=== PATIENT | male | born 1960 | race American Indian/Alaskan Native ===

== ENCOUNTER 2018-11-12 07:12 | Emergency (ER) | payer OTHER ==
[2018-11-12 07:26] VITALS: BP 111/71
--- NOTE | 2018-11-12 08:01 | Emergency Department Report ---
HPI - General Chief Complaint: Extremity Injury, Lower Time Seen by Provider: 11/12/18 07:37 - HPI HPI: This is a 58-year-old male presents to the ED complaining of bilateral leg pain and swelling intermittently for the past week. Patient denies any injury from falls. Patient states is having pain in both feet that is causing him some pain with walking. He denies fever chills nausea vomiting/abdominal pain/loss of sensation. Patient states he walks with a walker ED Past Medical Hx - Past Medical History Hx Hypertension: Yes Hx Congestive Heart Failure: Yes Hx COPD: Yes - Social History Smoking Status: Never Smoker Substance Use Type: None - Medications Home Medications: Home Medications Medication Instructions Recorded Confirmed Last Taken Type Naproxen [Naprosyn] 500 mg PO BID #30 tablet 11/12/18 Unknown Rx ED Review of Systems ROS: Stated complaint: SWOLLEN FEET/ANKLES Other details as noted in HPI Comment: All other systems reviewed and negative Physical Exam - Physical Exam Vital Signs: Vital Signs 11/12/18 07:14 Temperature 98.2 F Pulse Rate 98 H Respiratory 18 Rate Blood Pressure 111/71 O2 Sat by Pulse 100 Oximetry Physical Exam: GENERAL: Alert and oriented x3, no apparent distress, Normal Gait, atraumatic. HEAD: Head is normocephalic and a-traumatic. EXTREMITIES/MUSCULOSKELETAL: No cyanosis, clubbing, rash, lesions or edema. Full ROM bilaterally. Pedal Pulses 2+ bilaterally. LE 5+ strength bilaterally, mildly tender to palpation, no swelling noted, no deformity seen. No ulcers seen in bilateral feet. NEUROLOGIC: The patient is cooperative with no focal neurologic deficits. SKIN: Warm and dry, No lesions, No ulceration or induration present. ED Course Vital Signs 11/12/18 07:14 Temperature 98.2 F Pulse Rate 98 H Respiratory 18 Rate Blood Pressure 111/71 O2 Sat by Pulse 100 Oximetry ED Medical Decision Making - Radiology Data Radiology results: report reviewed, image reviewed BILATERAL FEET, 2 VIEWS History: Foot pain. Findings: There is normal bone mineralization. No evidence for fracture, bone lesion or erosive joint pathology. No significant degenerative changes are identified in the feet. There are mild osteoarthritic changes in both ankles. Small left plantar spur is identified. The soft tissues are unremarkable. Impression: Essentially unremarkable feet. Small left plantar spur. Transcribed By: TTR Dictated By: RAMON LOVE JR, MD Electronically Authenticated By: RAMON LOVE JR, MD Signed Date/Time: 11/12/18 0834 - Medical Decision Making 58-year-old male presents with bilateral foot pain. Patient is able to ambulate with a walker with no problem. X-rays obtained, shows no acute processes. Discussed findings with the patient. Discussed patient follow up with primary care physician used insoles on his feet when he does walk Critical care attestation.: If time is entered above; I have spent that time in minutes in the direct care of this critically ill patient, excluding procedure time. ED Disposition Clinical Impression: Foot pain, bilateral, Arthralgia Disposition: TO HOME OR SELFCARE Is pt being admited?: No Does the pt Need Aspirin: No Condition: Stable Instructions: Arthralgia (ED) Additional Instructions: Make sure to follow up with the primary care physician as discussed. Take all your medications as you've been prescribed. If you have any worsening symptoms or develop new symptoms please return to ED immediately. Prescriptions: Naproxen [Naprosyn] 500 mg PO BID #30 tablet Referrals: TOM ORTIZ MD [Primary Care Provider] - 3-5 Days Forms: Work/School Release Form(ED) Time of Disposition: 09:15
--- NOTE | 2018-11-12 08:38 | XRay Report ---
BILATERAL FEET, 2 VIEWS History: Foot pain. Findings: There is normal bone mineralization. No evidence for fracture, bone lesion or erosive joint pathology. No significant degenerative changes are identified in the feet. There are mild osteoarthritic changes in both ankles. Small left plantar spur is identified. The soft tissues are unremarkable. Impression: Essentially unremarkable feet. Small left plantar spur.
== END 2018-11-12 10:15 | disposition home or self-care (01) ==
LOC: ED 07:12
DX: M79.604 Pain in right leg (principal); M79.605 Pain in left leg; R22.43 Localized swelling, mass and lump, lower limb, bilateral; I11.0 Hypertensive heart disease with heart failure; I50.9 Heart failure, unspecified; J44.9 Chronic obstructive pulmonary disease, unspecified
CPT/HCPCS: 99283